=== PATIENT | male | born 1965 | race Caucasian/White ===

== ENCOUNTER 2019-04-02 10:04 | Outpatient (CLI) | payer BC ==
[~2019-04-02 10:04] MED LIST: FISH OIL500 M2 PO; VITAMIN D31000 UNI1 PO; triumeq PO
--- NOTE | 2019-04-02 11:38 | Diagnostic Imaging Report ---
Indication: Elbow pain Findings: 3 views of the left elbow were obtained. No acute fractures, malalignment, erosions or periostitis are identified. Soft tissues are unremarkable. Impression: No acute injury
--- NOTE | 2019-04-02 13:45 | Diagnostic Imaging Report ---
Indication: Abdominal pain Technique: Grayscale and duplex Doppler imaging of the abdomen performed. Comparison: None Findings: The liver is echogenic consistent with fatty infiltration. CBD is 3 mm.. Doppler interrogation of the main portal vein shows patency with hepatopedal, monophasic flow. There is no biliary ductal dilatation identified. Gallbladder is unremarkable. There demonstrated part of the pancreas, aorta and IVC show no definite abnormalities. Both kidneys appear unremarkable. There is no hydronephrosis. IMPRESSION: Fatty liver. Negative exam of the
== END 2019-04-02 12:04 | disposition home or self-care (01) ==
LOC: RAD 10:04
DX: R10.11 Right upper quadrant pain (principal); S50.02XA Contusion of left elbow, initial encounter; K76.0 Fatty (change of) liver, not elsewhere classified; X58.XXXA Exposure to other specified factors, initial encounter; Y92.9 Unspecified place or not applicable
CPT/HCPCS: 76700